=== PATIENT | male | born 1995 | race Caucasian/White ===

== ENCOUNTER 2017-07-01 19:17 | Emergency (ER) | payer OTHER ==
[2017-07-01 19:41] LABS: EOSINOPHIL COUNT 0.1 K/uL (0-0.3); HEMATOCRIT 44.4 % (38.0-50.0); IMMATURE GRANULOCYTE (%) 0.5 % (0.0-0.7); INSTRUMENT ABS NEUTROPHIL CT 2.9 K/uL; LYMPHOCYTE COUNT 2.3 K/uL (1.0-2.8); MCH 29.1 PG (29.0-34.0); MCHC 32.7 G/DL (30.0-36.0); MCV 89.2 FL (86-99); MEAN PLAT.VOLUME 11.6 uM^3 (9.0-12.4); MONOCYTE (%) 11.1 % (3-12); MONOCYTE COUNT 0.7 K/uL (0-0.8); NEUTROPHIL (%) 49.1 % (45-76); NEUTROPHIL COUNT 2.9 K/uL (1.8-6.4); PLATELET COUNT 209 K/uL (156-360); RBC DIS.WIDTH-CV 12.2 % (11.8-14.6); RBC DIS.WIDTH-SD 39.7 % (39-53); RED BLOOD COUNT 4.98 M/uL (4.00-5.50); WHITE BLOOD COUNT 5.9 K/uL (4.1-10.2)
[2017-07-01 19:48] LABS: AMYLASE 42 IU/L (1-118); CHLORIDE 104 mEq/L (99-109); POTASSIUM 3.8 mEq/L (3.7-5.4); SODIUM 139 mEq/L (136-147)
[2017-07-01 19:50] LABS: GLUCOSE 118 mg/dL (70-99)
[2017-07-01 19:51] LABS: ANION GAP 11 MEQ/L (2-14)
[2017-07-01 19:53] LABS: SERUM ETHYL ALCOHOL < 10 mg/dL
[2017-07-01 19:55] LABS: UREA NITROGEN (BUN) 10 mg/dL (9-23)
[2017-07-01 19:57] LABS: LIPASE 12 U/L (1.0-51.0)
[2017-07-01 19:59] LABS: GFR ESTIMATE (CALCULATED) > 59 mL/min/
[2017-07-01 20:01] LABS: PROTHROMBIN TIME 11.2 SEC (10.2-12.9)
[2017-07-01 20:03] LABS: PTT 26.6 SEC (25-37)
[2017-07-01 20:13] LABS: TROP-I INTERPRETATION NEGATIVE; TROPONIN-I < 0.01 ng/mL (0.0-0.30)
[2017-07-01 21:36] LABS: ADD MIUA? NO; BILIRUBIN NEGATIVE; BLOOD NEGATIVE; COLOR STRAW ((YELLOW)); GLUCOSE (STRIP) NEGATIVE; KETONES NEGATIVE; LEUKOCYTES NEGATIVE; NITRITE NEGATIVE; PROTEIN (STRIP) NEGATIVE; SPECIFIC GRAVITY 1.027 (1.000-1.030); UCUL ADDED? NO; UROBILINOGEN 0.2 MG/DL (0.2-1.0)
[2017-07-01 21:46] LABS: ADD MEDTOX COMMENT Y; AMPHETAMINE NEGATIVE (500 ng/mL); BARBITURATES NEGATIVE (200 ng/mL); BENZODIAZEPINES NEGATIVE (150 ng/mL); COCAINE NEGATIVE (150 ng/mL); INTERNAL CONTROLS VALID? YES; METHADONE NEGATIVE (200 ng/mL); METHAMPHETAMINE NEGATIVE (500 ng/mL); OPIATES (MORPHINE) PRESUMPTIVE POSITIVE (100 ng/mL); OXYCODONE NEGATIVE (100 ng/mL); PHENCYCLIDINE NEGATIVE (25 ng/mL); PROPOXYPHENE NEGATIVE (300 ng/mL); THC CANNABINOIDS NEGATIVE (50 ng/mL); TRICYCLIC ANTIDEPRESSANTS NEGATIVE (300 ng/mL)
[2017-07-01] MEDS ORDERED: KEFLEX500 MG PO (23:33)
== END 2017-07-02 00:24 | disposition home or self-care (01) ==
LOC: TRA 19:17
PROVIDERS: Emergency Medicine
DX: S81.002A Unspecified open wound, left knee, initial encounter (principal); S80.812A Abrasion, left lower leg, initial encounter; S90.511A Abrasion, right ankle, initial encounter; S50.812A Abrasion of left forearm, initial encounter; S70.212A Abrasion, left hip, initial encounter; S30.810A Abrasion of lower back and pelvis, initial encounter; S70.12XA Contusion of left thigh, initial encounter; V28.4XXA Motorcycle driver injured in noncollision transport accident in traffic accident, initial encounter; Z23 Encounter for immunization
CPT/HCPCS: 70450; 71260; 72125; 72129; 72132; 72170; 73060; 73090; 73552; 73562; 74177; 80048; 81003; 82150; 83690; 84484; 84999; 85025; 85610; 85730; 86900; 86901; 99281; 99285; G0480; J0690; J2270